=== PATIENT | female | born 1950 | race Caucasian/White ===

== ENCOUNTER 2017-09-06 11:17 | Emergency (ER) | payer MEDICARE ==
[~2017-09-06] VITALS: Ht 157.5 cm; Wt 59.0 kg
[~2017-09-06 11:17] MED LIST: Norco 5-325 Ta1 EACH PO; PREG300 PO
[2017-09-06] MEDS ORDERED: ACETAMINOPHEN500 MG PO (12:27)
[2017-09-06] MEDS ORDERED: TRAM50 PO (12:27)
== END 2017-09-06 13:07 | disposition home or self-care (01) ==
LOC: ER 11:17
DX: M25.551 Pain in right hip (principal); G89.29 Other chronic pain; M54.5 Low back pain; F17.200 Nicotine dependence, unspecified, uncomplicated; Z88.0 Allergy status to penicillin; Z88.6 Allergy status to analgesic agent; Z88.5 Allergy status to narcotic agent; Z91.018 Allergy to other foods; Z79.899 Other long term (current) drug therapy
CPT/HCPCS: 99282

== ENCOUNTER → 2018-10-21 | Outpatient (CLI) | payer MEDICARE ==
[~2018-10-21] MED LIST changes: +ACETAMINOPHEN500 MG PO; +IBUP800 PO; +TRAM50 PO
== END | disposition home or self-care (01) ==
LOC: LAB SHORT 18:04 → LAB 18:04
DX: Z51.81 Encounter for therapeutic drug level monitoring (principal); M54.17 Radiculopathy, lumbosacral region; Z98.890 Other specified postprocedural states; Z79.899 Other long term (current) drug therapy
CPT/HCPCS: G0480

== ENCOUNTER 2019-03-10 15:00 | Day surgery (SDC) | payer MEDICARE | END 2019-03-10 22:48 | disposition home or self-care (01) | LOC: RAD 15:00 | DX: M51.16 Intervertebral disc disorders with radiculopathy, lumbar region (principal); M47.26 Other spondylosis with radiculopathy, lumbar region; M48.07 Spinal stenosis, lumbosacral region; M41.9 Scoliosis, unspecified; Z98.890 Other specified postprocedural states | CPT/HCPCS: 62304; 72132; Q9966 ==

== ENCOUNTER → 2019-07-08 | Outpatient (CLI) | payer MEDICARE ==
[2019-07-11 17:06] LABS: COTININE Negative ng/mL (Cutoff=300)
== END | disposition home or self-care (01) ==
LOC: LAB SHORT 17:54 → OLS 17:54 → LAB FUT 07-07 14:05
PROVIDERS: Neurological Surgery
DX: Z09 Encounter for follow-up examination after completed treatment for conditions other than malignant neoplasm (principal); Z87.891 Personal history of nicotine dependence

== ENCOUNTER → 2019-11-05 | Outpatient (CLI) | payer MEDICARE, OTHER | END | disposition home or self-care (01) | LOC: LAB SHORT 10:58 → PLD 10:58 | DX: C44.619 Basal cell carcinoma of skin of left upper limb, including shoulder (principal) | CPT/HCPCS: 88305 ==

== ENCOUNTER → 2019-11-30 | Outpatient (CLI) | payer MEDICARE, OTHER | END | disposition home or self-care (01) | LOC: PLD 13:37 → LAB SHORT 13:37 | DX: C44.619 Basal cell carcinoma of skin of left upper limb, including shoulder (principal) | CPT/HCPCS: 88305 ==

== ENCOUNTER 2020-11-25 14:15 | Emergency (ER) | payer MEDICARE, OTHER ==
[~2020-11-25] VITALS: Ht 157.5 cm; Wt 71.7 kg
[2020-11-25] MEDS ORDERED: OXYC10TA19 PO (14:52)
[2020-11-25] MEDS ORDERED: Ventolin/Prove6.7 GM INH (14:52)
[2020-11-25] MEDS ORDERED: PREGABALIN PO (14:53)
[2020-11-25] MEDS ORDERED: ALBU90OI INH (15:14)
== END 2020-11-25 16:03 | disposition home or self-care (01) ==
LOC: ER 14:15
DX: J45.901 Unspecified asthma with (acute) exacerbation (principal); Z79.899 Other long term (current) drug therapy
CPT/HCPCS: 99283; A9270

== ENCOUNTER → 2022-11-15 | Outpatient (CLI) | payer MEDICARE, OTHER ==
[~2022-11-15] MED LIST changes: +ALBU90OI INH; +OXYC10TA19 PO; +PREGABALIN PO; +Ventolin/Prove6.7 GM INH
[2022-11-15 14:28] LABS: Source, Urine Clean Catch
[2022-11-15 15:42] LABS: Appearance, Urine Clear (Clear); Bilirubin, Urine Neg (Neg); Blood, Urine Neg (Neg); Color, Urine Yellow (P-Yellow); Glucose Qualitative, Urine Neg (Neg); Ketones, Urine Neg (Neg); Leukocyte Esterase, Urine 1+ (Neg); Nitrite, Urine Neg (Neg); Protein, Urine 1+ (Neg); Specific Gravity, Urine 1.015 (1.003-1.022); Urobilinogen, Urine NORM (Normal)
[2022-11-15 15:56] LABS: Red Blood Cells, Urine 0-2 /hpf (0-2)
[2022-11-15 15:58] LABS: Bacteria Rare /hpf; Squamous Epithelial Cells Rare /hpf (Few)
== END | disposition home or self-care (01) ==
LOC: LAB SHORT 11:45
PROVIDERS: Registered Nurse
DX: R30.0 Dysuria (principal); R35.0 Frequency of micturition
CPT/HCPCS: 81001

== ENCOUNTER 2023-03-13 15:16 | Emergency (ER) | payer OTHER, MEDICARE ==
[~2023-03-13] VITALS: Ht 157.5 cm; Wt 56.7 kg
[2023-03-13 17:35] VITALS: BP 130/81
== END 2023-03-13 17:28 | disposition home or self-care (01) ==
LOC: ER 15:16
DX: S06.0XAA Concussion with loss of consciousness status unknown, initial encounter (principal); S13.4XXA Sprain of ligaments of cervical spine, initial encounter; S43.402A Unspecified sprain of left shoulder joint, initial encounter; S46.912A Strain of unspecified muscle, fascia and tendon at shoulder and upper arm level, left arm, initial encounter; J45.909 Unspecified asthma, uncomplicated; F17.210 Nicotine dependence, cigarettes, uncomplicated; Z88.0 Allergy status to penicillin; Z88.6 Allergy status to analgesic agent; Z88.4 Allergy status to anesthetic agent; Z88.5 Allergy status to narcotic agent; Z91.018 Allergy to other foods; Z91.038 Other insect allergy status; Z79.899 Other long term (current) drug therapy; V89.2XXA Person injured in unspecified motor-vehicle accident, traffic, initial encounter
CPT/HCPCS: 70450; 72070; 72125; 73000; 96372; 99284-25; A9270; J1885

== ENCOUNTER → 2023-05-20 | Outpatient (CLI) | payer MEDICARE, OTHER ==
[2023-05-20 18:54] LABS: Appearance, Urine Clear (Clear); Bilirubin, Urine Neg (Neg); Blood, Urine Neg (Neg); Color, Urine Yellow (P-Yellow); Glucose Qualitative, Urine Neg (Neg); Ketones, Urine Neg (Neg); Leukocyte Esterase, Urine Neg (Neg); Nitrite, Urine Neg (Neg); Protein, Urine Neg (Neg); Specific Gravity, Urine 1.015 (1.003-1.022); Urobilinogen, Urine NORM (Normal)
== END | disposition home or self-care (01) ==
LOC: LAB SHORT 13:00 → LAB 13:00
PROVIDERS: Registered Nurse
DX: R30.0 Dysuria (principal)
CPT/HCPCS: 81003